=== PATIENT | female | born 1950 | race Caucasian/White ===

== ENCOUNTER 2025-11-14 12:16 | Emergency (ER) | payer MEDICARE ==
[~2025-11-14] VITALS: Ht 170.2 cm; Wt 72.0 kg
--- OUTSIDE RECORDS SUMMARY | 2025-11-14 12:23 | XMS ---
PreManage Notification: RONALD MORAN Security [employer] Events No recent Security Events currently on file CRITERIA MET - [facility] - 2 Visits in 30 Days CARE PROVIDERS CARLOS COTTO Student in an Organized Health Care Current Education/Training Program PHONE: [phone] NANCY PLASCENCIA Internal Medicine Current PHONE: Unknown Nedra has no Care Guidelines for this patient. Demetrius VISIT COUNT (12 MO.) [address] [place], [place] [address]Zeb Sainz M.C. [address] [place] [address] TOTAL 6 NOTE: Visits indicate total known visits. ED/UCC VISIT TRACKING (12 MO.) 11/14/2025 12:16 [facility] [place] TYPE: Emergency COMPLAINT: - HEART RATE ISSUE 10/17/2025 23:07 [facility] [place] TYPE: Emergency DIAGNOSES: - Other fatigue - Unspecified atrial flutter - Heart Palpitations 02/20/2025 02:40 [facility] [place] TYPE: Emergency DIAGNOSES: - Unspecified atrial fibrillation - Unspecified atrial flutter - Palpitations 02/13/2025 05:26 [facility] [place] TYPE: Emergency DIAGNOSES: - Paroxysmal atrial fibrillation - Palpitations 02/06/2025 09:01 [facility] [place] TYPE: Emergency DIAGNOSES: - Bradycardia, unspecified - Irregular Heart Beat - Numbness 02/04/2025 10:11 [facility] [place] TYPE: Emergency DIAGNOSES: - Unspecified atrial fibrillation - Irregular Heart Beat INPATIENT VISIT TRACKING (12 MO.) 01/18/2025 08:36 [facility] [place] TYPE: Cardiology DIAGNOSES: - Acute posthemorrhagic anemia - Anxiety disorder, unspecified - Dependence on respirator [ventilator] status - Encounter for adjustment and management of other part of cardiac pacemaker - Heart disease, unspecified - Nonrheumatic mitral (valve) insufficiency - Nonrheumatic mitral (valve) prolapse - Other forms of angina pectoris - Other forms of angina pectoris - Other hypertrophic cardiomyopathy - Other penitentiary (current) drug therapy - Other postprocedural complications and disorders of the circulatory system, not elsewhere classified - Other specified cardiac arrhythmias - Postprocedural cardiogenic shock, initial encounter - Postprocedural cardiogenic shock, initial encounter - Postprocedural cardiogenic shock, subsequent encounter - Presence of prosthetic heart valve - Unspecified atrial fibrillation [email or web address]
[2025-11-14] MEDS ORDERED: ELIQUIS5 MG PO (12:36)
[2025-11-14] MEDS ORDERED: EZETIMIBE10 MG PO (12:36)
[2025-11-14] MEDS ORDERED: ATORVASTATIN CA80 MG PO (12:37)
[2025-11-14] MEDS ORDERED: BUPROPION XL150 MG PO (12:37)
[2025-11-14 12:43] LABS: MCH 31.6 PG (25.6-32.2); MCHC 32.8 g/dL (32.2-35.5); MCV 96.3 fL (79.4-94.8); RBC 4.31 M/uL (3.93-5.22)
[2025-11-14 13:00] LABS: LYMPHOCYTES, MANUAL DIFF 63; MONOCYTES, MANUAL DIFF 1; NEUTROPHILS, MANUAL DIFF 36
[2025-11-14 13:13] LABS: ALT (SGPT) 29.0 U/L (14-59); AST (SGOT) 23.0 U/L (15-37); GLOMERULAR FILTRATION RATE,EST 68.0 mL/min (>60); PROTEIN, TOTAL 7.2 g/dL (6.4-8.2); TSH, 3RD GENERATION 2.157 uIU/mL (0.358-3.740); UREA NITROGEN 21.0 mg/dL (7-18)
[2025-11-14] MEDS ORDERED: SODIUM CHLORIDE 0.9% 1,000 ML IV PRN (14:30)
[2025-11-14 15:10] VITALS: BP 121/96
[2025-11-14] MEDS ORDERED: AMOX TR-K CLV1 EAC1 PO (15:12)
--- NOTE | 2025-11-16 17:41 | EKG ---
[facility] [address] [place] [address] Signed Sinus rhythm with 1st degree AV block with premature supraventricular complexes Minimal voltage criteria for LVH, may be normal variant ( [place] product ) Septal infarct (cited on or before 11-OCT-2025) Abnormal ECG When compared with ECG of 14-NOV-2025 12:22, (Unconfirmed) premature ventricular complexes are no longer present premature supraventricular complexes are now present OK interval has increased Vent. rate has decreased BY 48 BPM Confirmed by Brody Lopez DO ([id number]) on 11/16/2025 5:41:41 PM Electronically Signed By: BRODY LOPEZ DO 11/16/25 1741 PATIENT NAME: RONALD MORAN Electrocardiogram DATE OF : 50 PHYSICIAN: BRODY LOPEZ DO REPORT #: [id number] REPORT IS CONFIDENTIAL AND NOT TO BE RELEASED WITHOUT AUTHORIZATION
--- NOTE | 2025-11-16 17:41 | EKG ---
[facility] [address] [place] [address] Signed Sinus tachycardia with frequent premature ventricular complexes Left axis deviation Minimal voltage criteria for LVH, may be normal variant ( [place] product ) Anteroseptal infarct (cited on or before 11-OCT-2025) Abnormal ECG When compared with ECG of 14-NOV-2025 10:48, (Unconfirmed) Sinus rhythm has replaced Atrial flutter Confirmed by Brody Lopez DO ([id number]) on 11/16/2025 5:41:32 PM Electronically Signed By: BRODY LOPEZ DO 11/16/251740 PATIENT NAME: RONALD MORAN Electrocardiogram DATE OF : 50 PHYSICIAN: BRODY LOPEZ DO REPORT #: [id number] REPORT IS CONFIDENTIAL AND NOT TO BE RELEASED WITHOUT AUTHORIZATION
== END 2025-11-14 15:12 | disposition home or self-care (01) ==
LOC: ED 12:16
PROVIDERS: Emergency Medicine
DX: I48.91 Unspecified atrial fibrillation (principal); Z79.899 Other long term (current) drug therapy; Z91.030 Bee allergy status; Z79.01 Long term (current) use of anticoagulants
CPT/HCPCS: 36415; 80053; 80307; 83735; 84439; 84443; 84484; 85025; 92960; 93005; 93010; 99152; 99153; 99285-25; J2704; J7030